=== PATIENT | female | born 1965 | race Caucasian/White ===

== ENCOUNTER → 2020-02-26 15:33 | Outpatient (CLI) | payer BC, SELFPAY ==
--- NOTE | ~2020-02-26 | MM_ITS ---
EXAMINATION: MM screening [facility] BI w rosalio HISTORY: Screening mammogram, patient due for 12 month follow-up of probably benign left breast mass. TECHNIQUE: Craniocaudal and mediolateral oblique 3-D tomosynthesis images were obtained and synthetic 2-D images were generated. CAD analysis was submitted and interpreted. COMPARISON: 01/19/2019, 06/21/2018, 12/08/2017, 11/21/1917, 11/17/2016, 10/22/2016 BREAST PARENCHYMAL COMPOSITION: There are scattered areas of fibroglandular density. FINDINGS: A left breast mass with biopsy marker is stable for greater than two years, consistent with a benign finding. No suspicious mass, calcification, or architectural distortion is identified. Ther e has been no suspicious interval change. IMPRESSION: 1. No mammographic evidence of malignancy. 2. Recommend routine screening mammography in one year. BI-RADS Category 2: Benign finding(s). Reviewed, dictated and finalized at location A.
--- NOTE | ~2020-02-26 | XR_ITS ---
EXAMINATION: XR chest 2V 02/26/2020 16:18 INDICATION: Dyspnea with exertion PROCEDURE: 2 view chest COMPARISON: 04/06/2006 FINDINGS: The lungs are clear. The cardiomediastinal silhouette is within normal limits. There are no pleural effusions. There is no pneumothorax suspected. There is a laparoscopic adjustable gastri c band in the upper abdomen. IMPRESSION: 1: NO ACUTE CARDIOPULMONARY DISEASE. Reviewed, dictated and finalized at location A.
== END ==
PROVIDERS: PCP Family Medicine Adolescent Medicine; Visit Provider Family Medicine Adolescent Medicine
DX: Z12.31 Encounter for screening mammogram for malignant neoplasm of breast (principal); R06.09 Other forms of dyspnea
CPT/HCPCS: 71046; 77063; 77067

== ENCOUNTER 2020-05-15 00:20 | Outpatient (CLI) | payer BC, SELFPAY ==
[2020-05-15 18:51] LABS: SARS-CoV-2 RNA PCR Negative
== END 2020-05-15 00:21 | disposition home or self-care (01) ==
LOC: ANHCOVIDDT 00:21
PROVIDERS: PCP Family Medicine Adolescent Medicine; Visit Provider Specialist
DX: Z01.812 Encounter for preprocedural laboratory examination (principal); Z11.59 Encounter for screening for other viral diseases
CPT/HCPCS: 87635; C9803; U0003

== ENCOUNTER 2020-05-17 01:28 | Day surgery (SDC) | payer BC, SELFPAY ==
[2020-05-16 10:04] VITALS: BMI 47.8
[2020-05-17] VITALS (8 sets, daily range): BP systolic 118–139; BP diastolic 64–86; PULSE 66–75; RESP 12–19; TEMP 36.4–36.6; O2SAT 99–100
--- NOTE | 2020-05-17 10:45 | SUR.PREOP ---
1000-pt presents to the [facility] for an LHC. No distress noted. No chest pain at present. AOx4. PIV started with ultrasound help. Labs sent as ordered. Faint bilateral pedal pulses noted. Groin prepped in the usual fashion. Questions answered and verbalized understanding. Consent signed. Will continue to monitor.
[2020-05-17 10:46] LABS: Basophils Absolute Auto 0.1 K/mm3 (0.0-0.1); Basophils Percent Auto 0.7 % (0.2-1.2); Eosinophils Absolute Auto 0.2 K/mm3 (0-0.3); Eosinophils Percent Auto 1.9 % (0-4.4); Hematocrit 39.5 % (37.0-47.0); Immature Granulocyte Absolute 0.03 K/mm3 (0.00-0.031); Immature Granulocyte Percent A 0.3 % (0-0.5); Lymphocytes Absolute Auto 2.77 K/mm3 (0.9-3.2); Lymphocytes Percent Auto 28.7 % (18.3-44.2); Mean Corpuscular HGB Conc 32.9 g/dl (32-36); Mean Corpuscular Hemoglobin 29.2 pg (26-34); Mean Corpuscular Volume 88.8 fl (80-100); Mean Platelet Volume 10.1 fl (7.4-10.4); Monocytes Absolute Auto 0.7 K/mm3 (0.1-0.6); Monocytes Percent Auto 6.7 % (2.6-8.5); Neutrophils Percent Auto 61.7 % (45.5-73.1); Platelet Count Result 281 k/mm3 (150-375); Red Blood Count 4.45 M/mm3 (4.2-5.4); Red Cell Distribution Width 12.9 % (11.5-14.5); White Blood Count 9.7 K/mm3 (4.5-10.0)
[2020-05-17 10:53] LABS: INR 1.1; Prothrombin Time 14.6 Seconds (11.1-14.7)
[2020-05-17 10:56] LABS: Anion Gap 9 mmol/L (8-16); Blood Urea Nitrogen 13 mg/dL (7-17); Calcium 9.2 mg/dL (8.4-10.2); Carbon Dioxide 28 mmol/L (22-30); Chloride 101 mmol/L (98-107); Estimated CRCL calculation 113 ml/min; Estimated Glomerular Filt Rate > 60; Glucose 148 mg/dL (65-105); Potassium 3.4 mmol/L (3.4-5.0); Sodium 138 mmol/L (137-145)
--- NOTE | 2020-05-17 11:25 | WPDMODSED ---
Moderate Sedation Note-Pt Data Patient Data Diagnosis: exertional dyspnea abnormal nuclear stress test morbid obesity Present Complaint: this is 54-year-old lady who is morbidly obese and is complaining of exertional dyspnea as well as some chest discomfort. She has no prior documented history of coronary disease. A nuclear stress test is abnormal prompting the recommendation for an angiogram. Procedure to be performed/Plan: Left heart catheterization Allergies Allergy/AdvReac Type Severity Reaction Status Date / Time Penicillins Allergy Unknown RASH Unverified 01/04/19 11:31 Home Medications Medication Instructions Recorded Confirmed Type buspirone 10 mg tablet 10 mg PO BID 05/07/20 05/16/20 History cetirizine 10 mg tablet 10 mg PO DAILY 05/07/20 05/16/20 History duloxetine 60 mg capsule,delayed 60 mg PO DAILY 05/07/20 05/16/20 History release escitalopram oxalate 20 mg tablet 20 mg PO DAILY 05/07/20 05/16/20 History fluticasone propionate 50 1 spray INTRANASAL BID #15.8 ml 05/07/20 05/16/20 Rx mcg/actuation nasal spray,suspension furosemide 40 mg tablet 40 mg PO QAM 05/07/20 05/16/20 History glimepiride 1 mg tablet 2 mg PO BID 05/07/20 05/16/20 History hydrocodone 7.5 mg-acetaminophen 15 ml PO Q6H PRN 05/07/20 05/16/20 History 325 mg/15 mL oral solution insulin glargine 100 unit/mL (3 40 unit SUBCUT DAILY 05/07/20 05/16/20 History mL) subcutaneous pen losartan 100 1 tablet PO DAILY 05/07/20 05/16/20 History mg-hydrochlorothiazide 25 mg tablet lovastatin 40 mg tablet 40 mg PO DAILY 05/07/20 05/16/20 History meclizine 25 mg tablet 25 mg PO BID 05/07/20 History meloxicam 15 mg tablet 15 mg PO DAILY 05/07/20 History metformin 500 mg tablet 1,000 mg PO DAILY 05/07/20 05/16/20 History potassium chloride 20 mEq oral 20 meq PO DAILY 05/07/20 05/16/20 History packet ropinirole 1 mg tablet 1 mg PO DAILY tablet 05/07/20 05/16/20 History meclizine 15 mg PO DAILY 05/16/20 05/16/20 History meloxicam 15 mg PO DAILY 05/16/20 05/16/20 History Current Medications: Active Medications Sodium Chloride (Normal Saline Iv) 500 mls @ 100 mls/hr IV CONT .Q5H [facility] Sedation/Anesthesia: No previous sedation/anesthesia problems (including family history). [facility] Social History Social History (Updated 05/07/20 @ 15:11 by Ayde Horowitz MA) Smoking status: Former smoker Alcohol intake: never Substance use: never Mod Sed Physical Exam Physical Exam Pre Procedural Exam: Normal: Neck, Throat, Airway, Lungs, Heart Rate, Heart Rhythm, Neuro Exam and Extremities and Variation: Appearance ( morbidly obese white female no apparent distress) and Heart Size ( PMI cannot be palpated) Hours since solid foods: 12 Hours since liquid intake: 12 Internal Medicine - PN: Obj Da Vital Signs Vital Signs: Vital Signs - 24 hr 05/17/20 10:23 Temperature 36.6 C Pulse Rate 75 Respiratory Rate 14 Blood Pressure 139/86 Pulse Oximetry 100 Meds/Results Medications: Active Medications Generic Name Dose Route Start Last Admin Trade Name Freq PRN Reason Stop Dose Admin Sodium Chloride 500 mls @ 100 mls/hr 05/17/20 06:00 Normal Saline Iv IV CONT .Q5H [facility] Labs CBC & Chem 7: 05/17/20 10:19 05/17/20 10:19 Labs: Laboratory Results - last 24 hr 05/17/20 05/17/20 05/17/20 10:19 10:19 10:19 WBC 9.7 RBC 4.45 Hgb 13.0 Hct 39.5 MCV 88.8 MCH 29.2 MCHC 32.9 RDW 12.9 Plt Count 281 MPV 10.1 Immature Gran % (Auto) 0.3 Neut % (Auto) 61.7 Lymph % (Auto) 28.7 Brantley % (Auto) 6.7 Eos % (Auto) 1.9 Baso % (Auto) 0.7 Lymph # (Auto) 2.77 Brantley # (Auto) 0.7 H Eos # (Auto) 0.2 Baso # (Auto) 0.1 Abs Immat Gran (auto) 0.03 Absolute Neuts (auto) 6.0 Absolute Nucleated RBC 0.0 Nucleated RBC % 0.0 PT 14.6 INR 1.1 Sodium 138 Potassium 3.4 Chloride 101 Carbon Dioxide 28 Anion Gap 9 BU
--- NOTE | 2020-05-17 12:07 | P.PCNCC_ITS ---
Cardiac Cath Procedure Note Date of procedure:: 05/17/20 Performing physician:: Radu Howell MD Indication:: exertional dyspnea abnormal stress test morbid obesity Brief clinical history:: this obese 54-year-old lady who has been reporting symptoms of CHOUDHURY. A nuclear stress test was abnormal prompting the recommendation to perform an angiogram Procedure Procedure performed:: left heart catheterization with left ventriculography and coronary angiography Angio-Seal to right femoral artery Sedation/Medication given:: fentanyl 50 mg Versed 2 mg case start time 11:48 a.m. case end time 12:02 p.m. sedation provided by Trudi Winkler RN, trained observer Access site:: right femoral artery Estimated blood loss:: 10-15 cc Procedure note:: patient was brought to the cardiac catheterization lab in the postabsorptive state the right femoral triangle was prepared in the usual fashion. Anesthesia was provided with 1% lidocaine infiltrated locally. Using the modified Seldinger technique the femoral artery was punctured and a 5 Nepalese vascular sheath was placed. After this left heart catheterization was carried out. A 5 Nepalese pigtail catheter was used to document left-sided hematoma central injected LV g in the YOON projection. After this pigtail catheter was withdrawn in left coronary artery was engaged and injected using a standard 5 Nepalese FL4 catheter. The right coronary artery was engaged and injected using a standard JR4 catheter. After this the case was terminated angiogram was done of the femoral artery through the sheath after which a 6 Nepalese Angio-Seal device was deployed at the puncture site with a good hemostatic result. 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 Findings:: Hemodynamics: Central aortic pressure is 126/64 left ventricle 128/2 end-diastolic pressure 16. There is no significant gradient on pullback across the aortic valve. Left ventricle: The LV is normal in size all segments contract appropriately there were no regional wall motion abnormalities. Ejection fraction is visually estimated to be 60%. Left main coronary artery is widely patent the left anterior descending is a short artery ending before the apex. There is a diagonal branch which extends further down toward the apex of the LV. Despite the LAD being short is angiographically normal. Circumflex is a moderate caliber artery extending around the lateral wall in providing the marginal branches the circumflex is smooth and angiographically normal. Right coronary artery is large in caliber dominant to posterior circulation because of the short LAD the RPDA is expected is quite long extending down to around the apex. The right coronary is angiographically unremarkable Conclusion:: 1. right coronary dominant circulation with no evidence of coronary disease 2. normal left ventricular systolic function with no regional wall motion abnormalities 3. Angio-Seal to right femoral artery 4. false positive nuclear stress test caused by morbid obesity Radu Howell MD [facility]
--- NOTE | 2020-05-17 16:37 | SUR.PHASEII ---
1530-pt given D/c orders and instructions. Questions answered and verbalized understanding. AOx4. PIV removed intact. Pt taken via wheelchair to waiting vehicle. No distress noted or verbalized at time of departure.
== END 2020-05-17 15:30 | disposition home or self-care (01) ==
PROVIDERS: PCP Family Medicine Adolescent Medicine; Visit Provider Specialist
PROC: 4A023N7 Measurement of Cardiac Sampling and Pressure, Left Heart, Percutaneous Approach (ICD-10-PCS; CPT 93452; principal; 2020-05-17 11:30)
DX: R94.39 Abnormal result of other cardiovascular function study (principal); R06.09 Other forms of dyspnea; R07.89 Other chest pain; E66.01 Morbid (severe) obesity due to excess calories; Z68.42 Body mass index [BMI] 45.0-49.9, adult; E11.9 Type 2 diabetes mellitus without complications; I10 Essential (primary) hypertension; E78.5 Hyperlipidemia, unspecified; D64.9 Anemia, unspecified; F41.8 Other specified anxiety disorders; G47.30 Sleep apnea, unspecified; Z79.4 Long term (current) use of insulin
CPT/HCPCS: 36415; 80048; 85025; 85610; 93458; C1760; C1887; C1894; G0269; J1644; J2250; J3010; J7040

== ENCOUNTER 2020-05-23 13:01 | Outpatient (CLI) | payer BC, SELFPAY | END 2020-05-23 13:02 | disposition home or self-care (01) | LOC: ANHAUDIO 13:02 | PROVIDERS: PCP Family Medicine Adolescent Medicine; Visit Provider Otolaryngology | DX: R42 Dizziness and giddiness (principal); H69.80 Other specified disorders of Eustachian tube, unspecified ear; H90.11 Conductive hearing loss, unilateral, right ear, with unrestricted hearing on the contralateral side | CPT/HCPCS: 92557; 92567 ==

== ENCOUNTER 2020-05-29 12:30 | Outpatient (RCR) | payer BC, SELFPAY ==
--- NOTE | 2020-05-23 14:17 | PTOPEVAL ---
INITIAL PHYSICAL THERAPY EVALUATION and PLAN OF CARE Thank you for referring Emma Melgoza to [facility].? Emma is scheduled to be seen for physical therapy? 1x/week for 6 weeks. Please review, sign, date and return this plan of care NATASHA. I agree with and certify that the following plan of care is medically necessary. Referring Physician Date Admitting Provider: Attending Provider: Shaggy Hendricks MD Referring Provider: *PT Outpatient Evaluation Start: 05/23/20 13:18 Freq: Status: Active Protocol: Document 05/23/20 13:10 RIVERA (Rec: 05/23/20 14:17 RIVERA [id number]) Therapy Assessment Status Assessment Status Assessment Status Evaluation Outpatient Past Medical History Past Medical History Source of Past Medical History Recalled from Previous Visit, Confirmed with Patient/Family Neurological History Hx Migraine Yes Cardiovascular History Hx Angina Yes Hx Cardiac Catheterization Yes: 05/17/2020 Hx Chest Pain Yes Hx Hypercholesterolemia Yes Hx Hypertension Yes Respiratory History Hx Sleep Apnea Yes: uses bipap machine Gastrointestinal History Hx Cholecystectomy Yes Hx Gastroesophageal Reflux Disease Yes Hx Irritable Bowel Yes Genitourinary History Hx Genitourinary Disorders No Significant History Musculoskeletal History Hx Arthritis Yes Hx Fibromyalgia Yes Hematological History Hx Hematological Disorders No Significant History Endocrine History Hx Diabetes Yes HEENT History Hx Cataracts Yes: 2014 surgery Hx Tonsillectomy Yes Hx Eye Surgery Yes Integumentary History Hx Cellulitis Yes Hx Other Skin Disorders Yes Reproductive History Hx Fibroids Yes Hx Hysterectomy Yes Psychosocial History Hx Anxiety Yes Hx Depression Yes Pain History Has Past Pain Affected Your Daily Life Yes History of Long-Term Prescription Pain Yes Medication Use (Opiates) Anesthesia History Hx Anesthesia Reactions No Significant History Other History Hx Cancer Yes: skin Evaluation Information Problem Diagnosis BPPV Onset 6-7 years Subjective Information gets dizziness turning around Query Text:As Reported By Patient/ in the shower, moving head Family quickly, nothing with rolling over in bed, will get some dizziness at train crossing, big [employer] theatre - needs to
--- NOTE | 2020-06-10 16:38 | PCPTNOTE ---
PHYSICAL THERAPY DISCHARGE SUMMARY Admitting Provider: Attending Provider: Shaggy Hendricks MD Patient:Emma Melgoza Date of :1965 Emma called to cancel the remaining PT visits due to insurance reasons. Emma?s initial visit was on 05/23/2020 13:00 and she had a total of 1 follow up visit. The goals have been partially met. I did follow up with a phone call and left message in regards to possibly following up via phone to upgrade her VOR exercises. Thank you for referring Emma to [facility]. Please review, sign, date and return this discharge summary NATASHA. I have been updated about Emma's current status and I agree with discharge from the above service at this time. Referring Physician Date
== END 2020-07-01 14:57 | disposition home or self-care (01) ==
LOC: ANHHIPT 12:30
PROVIDERS: PCP Family Medicine Adolescent Medicine; Visit Provider Otolaryngology
DX: H81.10 Benign paroxysmal vertigo, unspecified ear (principal)
CPT/HCPCS: 97110; 97162

== ENCOUNTER 2020-08-08 14:05 | Outpatient (CLI) | payer BC, SELFPAY ==
--- NOTE | 2020-08-08 16:45 | WPDPFTINT ---
PFT Interpretation This is a pulmonary function test with pre and post-bronchodilator spirometry, plethysmography and diffusing capacity. The test was performed and results interpreted in accordance with the 2019 and 2005 ATS/ERS Task Force guidelines respectively using the Micah/Polliam reference equations. Of note the patient was very short of breath during the testing and was unable to keep full exhalation on the spirometry despite good effort and good coating. Findings: Spirometry: The contour the inspiratory flow tracing are normal and the expiratory flow tracing is incomplete. The pre bronchodilator FVC is 3.42 L, 97% predicted. The pre bronchodilator FEV1 is 2.68 L, 102% predicted. The FEV1: FVC ratio is 78%. The post bronchodilator FVC is 3.28 L, representing a 4% decrease. The post bronchodilator FEV1 is 2.28 L, representing a 15% decrease. Plethysmography: The total lung capacity is 5.05 L, 91% predicted. The functional residual capacity is 2.13 L, 107% predicted. The residual volume is 1.63 L, 80% predicted. Diffusing capacity: The absolute diffusion capacity is 19.3, 62% predicted. The diffusing capacity corrected for alveolar volume is 4.96, 128% predicted. Impression: The spirometry is normal without evidence of an obstructive abnormality. There is no significant improvement after inhaling a single dose of albuterol. The lung volumes are normal. The absolute diffusing capacity is mildly decreased and increased when corrected for alveolar volume. There are no prior studies for comparison
== END 2020-08-08 14:06 | disposition home or self-care (01) ==
LOC: ANHPFT 14:06
PROVIDERS: PCP Family Medicine Adolescent Medicine; Visit Provider Family Medicine Adolescent Medicine
DX: R06.02 Shortness of breath (principal)
CPT/HCPCS: 94060; 94726; 94729

== ENCOUNTER → 2022-04-07 13:56 | Outpatient (CLI) | payer BC, SELFPAY ==
--- NOTE | ~2022-04-07 | MM_ITS ---
EXAMINATION: MM screening [facility] BI w rosalio HISTORY: Screening mammogram, family history of breast cancer in her sister. TECHNIQUE: Craniocaudal and mediolateral oblique 3-D tomosynthesis images were obtained and synthetic 2-D images were generated. CAD analysis was submitted and interpreted. COMPARISON: 02/26/2020, 01/19/2019 BREAST PARENCHYMAL COMPOSITION: There are scattered areas of fibroglandular density. FINDINGS: No suspicious mass, calcification, or architectural distortion are identified in either issac ast to suggest malignancy. There has been no suspicious interval change. IMPRESSION: 1. No mammographic evidence of malignancy. 2. Recommend routine screening mammography in one year. BI-RADS Category 1: Negative Reviewed, dictated and finalized at location A.
== END ==
PROVIDERS: PCP Family Medicine Adolescent Medicine; Visit Provider Family Medicine Adolescent Medicine
DX: Z12.31 Encounter for screening mammogram for malignant neoplasm of breast (principal)
CPT/HCPCS: 77063; 77067

== ENCOUNTER 2023-03-29 12:33 | Outpatient (CLI) | payer MEDICARE, BC, SELFPAY ==
--- NOTE | 2023-03-29 14:22 | ECHO_ITS ---
Patient Info Name: Emma Melgoza Age: 57 years : 1965 Gender: Female Ht: 67 in Wt: 290 lbs BSA: 2.56 m2 HR: 81 bpm BP: 171 / 90 mmHg Technical Quality: Poor Exam Date: 03/29/2023 2:24 PM Exam Location: [facility] Patient Status: Outpatient Admit Date: 03/29/2023 Staff Ordering Physician: Valery Diez MD [employer] Analyst: Brinda Cote RDCS Attending Provider: Valery Diez MD Referring Physician: Chary FLORES; Exam Type: CA echo dop color flow w con Study Info Indications - DYSPNEA Complete two-dimensional, color flow and Doppler transthoracic echocardiogram is performed with contrast to opacify the left ventricle and to improve the deliniation of the left ventricle endocardial borders. Contrast/Agitated Saline Contrast/Ag. Saline: Definity Amount: 2.00 ml Administered By: Brinda Cote [facility] Existing IV Access: Yes Site Condition: IV removed Reason for Poor Study: patient body habitus Summary 1. Technically suboptimal study due to poor sonographic images. 2. Definity contrast administered improved wall motion interpretation. 3. Left ventricular chamber dimension is normal. 4. Left ventricular systolic function is normal, estimated at 60-65%. 5. The left ventricular diastolic function is grade I diastolic dysfunction. 6. E/e' 10 is mildly elevated. 7. There is moderate aortic valve sclerosis. 8. There is very mild aortic valve stenosis with a peak velocity of 285.22 cm/s, mean gradient of 18 mmHg, and aortic valve area of 2.03 cm2. 9. There is mild aortic valve regurgitation. 10. The mitral valve has moderately calcified anterior leaflet. 11. No pulmonary hypertension, estimated pulmonary arterial systolic pressure is 21 mmHg. Left Ventricle Definity contrast administered improved wall motion interpretation. E/e' 10 is mildly elevated. Technically suboptimal study due to poor sonographic images. Left ventricular chamber dimension is normal. Left ventricular systolic function is normal, estimated at 60-65%. The left ventricular diastolic function is grade I diastolic dysfunction. Right Ventricle Right ventricular chamber dimension is normal. Right ventricular systolic function is normal. Left Atria Left atrial chamber dimension is normal. Right Atria Right atrial chamber dimension is normal. Aortic Valve The aortic valve is trileaflet. There is moderate aortic valve sclerosis. There is very mild aortic valve stenosis with a peak velocity of 285.22 cm/s, mean gradient of 18 mmHg, and aortic valve area of 2.03 cm2. There is mild aortic valve regurgitation. Pulmonic Valve There is no pulmonic regurgitation. Mitral Valve The mitral valve has moderately calcified anterior leaflet. There is no mitral valve stenosis. There is no mitral valve regurgitation. Tricuspid Valve There is no tricuspid valve regurgitation. No pulmonary hypertension, estimated pulmonary arterial systolic pressure is 21 mmHg. Pericardium/Pleural There is no pericardial effusion. Inferior Vena Cava Normal inferior vena cava with >50% collapse upon inspiration consistent with normal right atrial pressure, 5 mmHg. Aorta The aortic root size at the sinus of Valsalva is normal. Left Ventricular Outflow Tract Name Value Normal LVOT 2D LVOT Di
[2023-03-29] MEDS: PERFLUTREN LIPID MICROSPHERES 1.5 ML VIAL DILUTED TO 10 ML TOTAL VOLUME IV PUSH (15:20)
--- NOTE | 2023-03-29 15:50 | WPDSIXMINUTE ---
Six Minute Walk Procedure Procedure Performed Pulmonary Stress Test (6 min walk) Six Minute Walk Six Minute Walk: This is a 6 minute walk test. The test was performed and interpreted in accordance with the 2014 ERS/ATS task force guidelines. Findings: The patient's resting room air oxygen saturation measured by pulse oximetry was 97% and heart rate was 83 bpm. Patient ambulated for 213 meters and oxygen saturation remained 89 to 96%. Heart rate at the end of the study was 100 bpm. Of note, the patient's saturation decreased to 88% at 40 seconds after test conclusion. The patient did not qualify for supplemental oxygen at rest or with ambulation during the 6 minute walk but did have saturations of 88% at 40 seconds after test conclusion. Consider a formal home O2 assessment. There are no prior studies for comparison.
--- NOTE | 2023-03-29 15:54 | P.PCNPFT_ITS ---
PFT Procedure Performed PFT Procedure Performed Spirometry with Pre/Post Bronchodilator Plethysmography (Lung Vol) Diffusing Cap (DLCO) Flow Vol Loop PFT Interpretation This is a pulmonary function test with pre and post-bronchodilator spirometry, plethysmography and diffusing capacity. The test was performed and results interpreted in accordance with the 2019 and 2005 ATS/ERS Task Force guidelines respectively using the Global Lung Function Initiative-2012 reference equations. Patient demonstrated good effort and cooperation. Reproducibility criteria were met. The quality of the pre bronchodilator spirometry maneuver was Grade A and post bronchodilator spirometry maneuver was Grade A. Findings: Spirometry: The contour the inspiratory and expiratory flow tracing are normal. The pre bronchodilator FVC is 3.63 L, 103% predicted. The pre bronchodilator FEV1 is 2.82 L, 102% predicted. The pre bronchodilator FEV1: FVC ratio 78%. The post bronchodilator FVC is 3.60 L, representing 1% decrease. The post bronchodilator FEV1 is 3.00 L, representing a 6% increase. The post bronchodilator FEV1: FVC ratio was 83%. Plethysmography: The total lung capacity is 5.58 L, 102% predicted. The functional residual capacity is 3.00 L, 96% predicted. The residual volume is 1.95 L, 92% predicted. The Diffusing capacity: The diffusing capacity unadjusted for hemoglobin and carboxyhemoglobin is 23.0, 100% predicted. The diffusing capacity adjusted for alveolar volume is 5.51, 128% predicted. In comparison to previous pulmonary function testing on 08/08/2020 the pre bronchodilator FVC is unchanged from 3.42 L to 3.63 L. The pre bronchodilator FEV1 is unchanged from 2.68 L to 2.82 L.The post bronchodilator FVC is unchanged from 3.28 L to 3.60 L. The post bronchodilator FEV1 is increased from 2.28 L to 3.00 L. the total lung capacity is unchanged from 5.05 L to 5.58 L. The funct ional residual capacity is increased from 2.13 L to 3.00 L. The residual volume is increased from 1.63 L to 1.95 L. The diffusing capacity unadjusted for hemoglobin and carboxyhemoglobin is increased from 19.3 to 23.0. The diffusing capacity adjusted for alveolar volume is unchanged from 4.96 to 5.51. Impression: The spirometry is normal without evidence of an obstructive abnormality. There is no significant improvement after inhaling a single dose of albuterol. The lung volumes are normal. The diffusing capacity is normal. In comparison to previous pulmonary function testing on 08/08/2020 there has been a greater than anticipated time dependent increase in the functional residual capacity, residual volume, and diffusing capacity unadjusted for hemoglobin and carboxyhemoglobin with no significant change in the pre bronchodilator FVC, FEV1, post bronchodilator FVC, total lung capacity or diffusing capacity adjusted for alveolar volume. Of note, there has been a greater than anticipated time dependent decrease in the post bronchodilator FEV1 but on the prior test there was a 15% decrease in the post bronchodilator FEV1. Clinical correlation is recommended.
--- NOTE | 2023-03-30 07:08 | IVDEFINITY ---
Prior to administration of IV Definity the patient was educated on the risks and benefits of the imaging enhancing agent including potential adverse side effects. The patient verbalized understanding. Allergies were verified. No exclusion criteria were identified and at least one of the following inclusion criteria were met: 1) physician request, 2) patient technically difficult to image (per the [place] [employer] Echocardi[employer] guidelines of two or more segments not discernable within the apical view), or 3) questionable left ventricular function. ?
== END 2023-03-29 12:34 | disposition home or self-care (01) ==
PROVIDERS: PCP Family Medicine Adolescent Medicine; Visit Provider Internal Medicine Critical Care Medicine
DX: R06.00 Dyspnea, unspecified (principal); I35.8 Other nonrheumatic aortic valve disorders; I35.0 Nonrheumatic aortic (valve) stenosis; I35.1 Nonrheumatic aortic (valve) insufficiency; R93.1 Abnormal findings on diagnostic imaging of heart and coronary circulation
CPT/HCPCS: 94060; 94618; 94726; 94729; C8929

== ENCOUNTER 2023-05-04 09:03 | Outpatient (CLI) | payer MEDICARE, SELFPAY ==
--- NOTE | 2023-05-23 13:09 | WPDSLEEPSTUD ---
Sleep Study Date of Study: 05/04/23 Ordering Provider: Valery Diez MD Interpreting Physician: Valery Diez MD Sleep Study Type: BiPAP Titration Height: 1.7 m Weight: 131.542 kg Body Mass Index: 45.4 Neck Circumference (inches): 18.5 [place]: 15 Reason for Sleep Study needs BiPAP re-titration, last sleep study was 2013, has a new machine replaced during the pandemic, but she is too sleepy even with good compliance Sleep History Emma Melgoza is a 57-year-old woman with long history of obstructive sleep apnea, diagnosed in 2013. that was her last study. She received a new machine during the pandemic due to the national recall but even with good compliance, she still has excessive daytime sleepiness. She has difficulty concentrating. She never awakens from sleep short of breath. She rarely wakes at night with heartburn, belching or coughing.??She rarely snores, rarely snores loudly enough that others complain. She rarely has trouble sleeping when she has a cold. She rarely wakes up gasping for breath during the night. She rarely has breathing problems at night. She occasionally sweats excessively at night. She rarely notices her heart pounding or beating irregularly during the night. She occasionally falls asleep during the day. She occasionally and sometimes frequently falls asleep involuntarily, occasionally and sometimes frequently falls asleep while driving. She rarely experiences loss of muscle tone with strong emotion. She never feels paralyzed on waking or falling asleep. She rarely experiences vivid dreams upon waking or falling asleep. She never feels afraid of going to sleep however she says that in general she does not want to go to sleep. She occasionally has nightmares. She occasionally recalls her dreams. She occasionally has thoughts racing through her mind. She occasionally feels sad or depressed. She occasionally feels anxiety. She rarely sometimes occasionally notices parts of her body jerk. She occasionally kicks during the night. She has a diagnosis of restless legs syndrome, frequently feels crawling or aching feelings in her legs. In addition, she has diabetes mellitus and fibromyalgia contributing to her aching feelings in her legs. She frequently feels leg pain at night. She never has morning jaw pain, and occasionally grinds her teeth at night. She constantly feels bothered by pain during the day which is due to her fibromyalgia and diabetes, rarely awakened by pain during the night. She frequently wakes up feeling stiff in the morning, frequently wakes feeling sore or achy in the morning. She frequently awakens with pain in her neck, spine, or joints. she has concentration difficulties, memory problems, fatigue and headaches. Normal bedtime is 2:00 a.m., falling asleep very quickly once she puts her BiPAP on. She does not wake up during the night, in general. On occasion, she wakes to look at her phone, get a drink of water or go to the bathroom. Her normal wake up time is 12 noon. She keeps the same schedule on weekends. She averages 12 hours of sleep at night. She takes naps, and sometimes these are refreshing. Habits:??Tobacco: never Caffeine:3-5 caffeinated beverages a day. Alcohol:occasional Recreational substances: edible marijuana, once in a while. [facility] Past Medical History Medical History (Updated 05/23/23 @ 17:19 by Valery Diez MD) BPPV (benign paroxysmal positional vertigo) Essential (primary) hypertension ETD (eustachian tube dysfunction) Fibromyalgia Nasal congestion Obstructive sleep apnea (adult) (pediatric) PND (post-nasal drip) Restless legs syndrome (RLS) Rhinitis Rhinorrhea Type 2 diabetes mellitus with peripheral neuropathy Vertigo Surgical History Surgical History History of adjustable gastric banding History of total abdominal hysterectomy (~2000) Hx of section Hx of cholecystectomy
[2023-05-23 17:21] VITALS: BMI 45.4
== END 2023-05-05 06:37 | disposition home or self-care (01) ==
LOC: ANHCSM 09:03
PROVIDERS: PCP Family Medicine Adolescent Medicine; Visit Provider Internal Medicine Critical Care Medicine
DX: G25.81 Restless legs syndrome (principal); G47.33 Obstructive sleep apnea (adult) (pediatric)
CPT/HCPCS: 95811

== ENCOUNTER 2023-10-22 13:49 | Outpatient (CLI) | payer MEDICARE, SELFPAY ==
--- NOTE | ~2023-10-22 | MM_ITS ---
EXAMINATION: MM screening [facility] BI w rosalio HISTORY: Screening TECHNIQUE: Craniocaudal and mediolateral oblique 3-D tomosynthesis images were obtained and synthetic 2-D images were generated. CAD analysis was submitted and interpreted. COMPARISON: 04/07/2022 BREAST PARENCHYMAL COMPOSITION: Not dense: There are scattered areas of fibroglandular density. FINDINGS: There is no evidence of suspicious mass, calcification, or architectural distortion to sugg est malignancy in either breast. There has been no suspicious interval change. IMPRESSION: 1. No mammographic evidence of malignancy. 2. Recommend routine screening mammography in one year. BI-RADS Category 1: Negative Reviewed, dictated and finalized at location B.
== END 2023-10-22 13:50 ==
LOC: MICIMG 13:50
PROVIDERS: PCP Family Medicine Adolescent Medicine; Visit Provider Obstetrics & Gynecology
DX: Z12.31 Encounter for screening mammogram for malignant neoplasm of breast (principal)
CPT/HCPCS: 77063; 77067

== ENCOUNTER 2024-08-09 15:34 | Outpatient (CLI) | payer MEDICARE, SELFPAY ==
--- OUTSIDE RECORDS SUMMARY | 2024-08-09 15:58 | XMS_ITS | Clinical Summary ---
Author Organization [facility] Address [address] [address] Phone Care Team Providers Care Rock Wool Insulator Name Role Phone Eric Duncan MD Primary Care Provider + Allergies Active Allergy Reactions Criticality Noted Date Comments Penicillins Unknown 04/08/2022 Medications No known medications Family History Medical History Relation Name Comments Cancer Brother colon Cancer Father Cancer Niece Breast Cancer Sister 1 Breast Cancer Sister 2 lung Relation Name Status Comments Brother Father Niece Sister 1 Sister 2 Social History Tobacco Use Types Packs/Day Years Used Date Smoking Tobacco: Never Smokeless Tobacco: Never Alcohol Use Standard Drinks/Week Comments Yes 0 (1 standard drink = 0.6 oz pur e alcohol) occassional Comments Unknown Sex and Gender Information Value Date Recorded Sex Assigned at Not on file Legal Sex Female 7:33 PM CDT Gender Identity Not on file Sexual Orientation Not on file Last Filed Vital Signs Vital Sign Reading Time Taken Comments Blood Pressure 132/93 04/20/2022 3:14 PM CDT Pulse 74 04/20/2022 3:14 PM CDT Temperature - - Respiratory Rate 14 04/20/2022 3:14 PM CDT Oxygen Saturation 100% 04/20/2022 3:14 PM CDT Inhaled Oxygen Concentration - - Weight - - Height - - Body Mass Index - - Plan of Treatment Health Maintenance Due Date Last Done Comments Hepatitis C Virus (HCV) Screening 1965 TdaP Immunization 1965 Cologuard 12/10/2013 Immunochemical Fecal Occult Blood 12/10/2013 Mammogram 12/10/2013 Pneumococcal Immunization (5 0+ years) (1 of 1 - PCV) 12/10/2013 Influenza Immunization (#1) 2024 SARS-COV-2 Immunization (1 - season) 2024 Colonoscopy 04/20/2027 04/20/2022, 01/04/2019, 03/26/2014 Colorectal Cancer Screening 04/20/2027 Respiratory Syncytial Virus (RSV) Immunization (Adult) (1 - 1-dose 75+ series) 12/10/2038 04/20/2022, 01/04/2019, 03/26/2014 Zoster Immunization Completed 12/27/2017, 10/05/2017 Hepatitis B Immunization Aged Out No longer eligible based on patient's age to complete this topic Meningococcal Immunization (ACWY) Aged Out No longer eligible b ased on patient's age to complete this topic Pneumococcal Immunization Combined Aged Out No longer eligible b ased on patient's age to complete this topic Rotavirus Immunization Aged Out No lo nger eligible based on patient's age to complete this topic Procedures Procedure Name Priority Date/Time Associated Diagnosis Comments COLONOSCOPY Routine 01/04/2019 from Last 3 Months or Most Recently Relevant to Health Maintenance Results * COLONOSCOPY (01/04/2019) Paulino Calvillo DO PROCEDURE/MINOR SURGICAL ORDERA BLES Final Result from Last 3 Months or Most Recently Relevant to Health Maintenance Insurance [facility] Care Teams Rock Wool Insulator Relationship Specialty Start Date End Date Eric Duncan MD [address] [place] [address] PCP - General Family Medicine 08/18/18
--- OUTSIDE RECORDS SUMMARY | 2024-08-09 15:58 | XMS_ITS | Clinical Summary ---
Author Organization [facility] Address [address] [place] [id number] Care Team Providers Care Team Assembler Name Role Phone Unavailable Primary Care Provider Unavailabl e Social History Tobacco Use Types Packs/Day Years Used Date Smoking Tobacco: Never Assessed Comments Unknown Sex and Gender Information Value Date Recorded Sex Assigned at Not on file Legal Sex Female 4:28 PM CDT Gender Identity Not on file Sexual Orientation Not on file Last Filed Vital Signs Vital Sign Reading Time Taken Comments Blood Pressure 120/80 11/05/2015 2:39 PM CDT Pulse 76 11/05/2015 2:39 PM CDT Temperature - - Respiratory Rate - - Oxygen Saturation - - Inhaled Oxygen Concentration - - Weight 144.7 kg (319 lb) 11/05/2015 2:39 PM CDT Height 170.2 cm (5' 7 ) 11/05/2015 2:39 PM CDT Body Mass Index 49.96 11/05/2015 2:39 PM CDT Plan of Treatment Health Maintenance Due Date Last Done Comments Cervical Cancer Screening Pa p Smear (Age 30 to 64) Every 3 Years 1965 Colorectal Cancer Screening Colonoscopy (10 Years) 1965 Annual Physical 12/10/1966 Hepatitis C 12/10/1981 DTaP, Tdap and Td Vaccines ( 1 - Tdap) 12/10/1982 Cervical Cancer Screening Pa p with HPV Testing (Age 30 to 64) Every 5 Years 12/10/1993 Cervical Cancer Screening with HPV 12/10/1993 Mammogram Screening 2003 Zoster Vaccines (1 of 2) 12/10/2013 COVID-19 Vaccine (2023-2 5 season) 2024 Influenza Adult (#1) 2024 RSV Immunization or 60+ Years (1 - 1-dose 75+ series) 12/10/2038 Meningococcal B Vaccine Aged Out No l onger eligible based on patient's age to complete this topic Meningococcal Vaccine Aged Out No russ hector eligible based on patient's age to complete this topic Pneumococcal Vaccine: Pediat rics (0 to 5 Years) and At-Risk Patients (6 to 64 Years) Aged Out No longer eligible b ased on patient's age to complete this topic RSV Immunizations Under 20 Months Aged Out No longer eligible based on patient's age to complete this topic
--- OUTSIDE RECORDS SUMMARY | 2024-08-09 15:58 | XMS_ITS | Referral Summary ---
Author Organization [facility] [facility] [address] Address [address] [place] [address] Care Team Providers Care Facility Operations Manager Name Role Phone Eric Duncan MD Primary Care Prov ider Allergies Active Allergy Reactions Criticality Noted Date Comments Penicillins Unknown 05/01/[address] (CYMBALTA) 60 mg capsule Take 60 mg by mouth daily 0 Active HYDROcodone-ac etaminophen (NORCO) 5-325 mg per tablet TAKE 1 TO 2 TABLETS BY MOUTH AT BEDTIME NEEDED FOR PAIN 0 Active Basaglar KwikPen U-100 Insulin 100 unit/mL (3 mL) insulin pen INJECT 40 UNITS SUBCUTANEOUSLY ONCE DAILY AT BEDTIME 0 Active glimepiride (AMARYL) 1 mg tablet TAKE 2 TABLETS BY MOUTH IN THE MORNING AND 2 IN THE EVENING 0 Active metFORMIN XR (GLUCOPHAGE XR) 500 mg 24 hr tablet Take 1,000 mg by mouth daily 0 Active escitalopram (LEXAPRO) 20 mg tablet 0 Active busPIRone (BUSPAR) 10 mg tablet 0 Active meclizine (ANTIVERT) 25 mg tablet TAKE 1 TABLET BY MOUTH 1 TO 2 TIMES DAILY NEEDED FOR VERTIGO 0 Active potassium chloride ER 20 mEq CR tablet Take 20 mEq by mouth daily 0 Active furosemide (LASIX) 40 mg tablet Take 40 mg by mouth daily 0 Active losartan-hydro chlorothiazide (HYZAAR) 100-25 mg per tablet TAKE 1 TABLET BY MOUTH ONCE DAILY FOR BLOOD PRESSURE 0 Active lovastatin (MEVACOR) 40 mg tablet 0 Active rOPINIRole (REQUIP) 1 mg tablet Take 1 mg by mouth nightly at bedtime. 0 Active fluticasone propionate (FLONASE) 50 mcg/actuation nasal spray 0 Active cetirizine (ZyrTEC) 10 mg tablet Take 10 mg by mouth daily Active meloxicam (MOBIC) 15 mg tablet Take 15 mg by mouth daily Active Active Problems Problem Noted Date Diagnosed Date Precordial pain 05/09/2020 Abnormal stress test 05/09/2020 Social History Tobacco Use Types Packs/Day Years Used Date Smoking Tobacco: Never Smokeless Tobacco: Never Alcohol Use Standard Drinks/Week Comments Never 0 (1 standard drink = 0.6 oz pur e alcohol) AUDIT-C Answer Date Recorded Q1: How often do you have a drink containing alc ohol? Never 05/09/2020 Average Number of Drinks Not on file 020 Frequency of Binge Drinking Not on file 11/2019 Personal Safety Answer Date Recorded Getting School Help Needed Not on file 09/18 Comments Unknown Sex and Gender Information Value Date Recorded Sex Assigned at Not on file Legal Sex Female 7:33 PM CORPORATE CONTROLLER Gender Identity Not on file Sexual Orientation Not on file Last Filed Vital Signs Vital Sign Reading Time Taken Comments Blood Pressure 148/80 05/09/2020 11:50 AM CORPORATE CONTROLLER Pulse 94 05/09/2020 11:50 AM CORPORATE CONTROLLER Temperature - - Respiratory Rate - - Oxygen Saturation 96% 05/09/2020 11:50 AM CORPORATE CONTROLLER Inhaled Oxygen Concentration - - Weight 138.3 kg (305 lb) 05/09/2020 11:50 AM CORPORATE CONTROLLER Height 171.5 cm (5' 7.5 ) 05/09/2020 11:50 AM CS T Body Mass Index 47.06 05/09/2020 11:50 AM CORPORATE CONTROLLER Plan of Treatment Not on file Insurance [facility] Care Teams Facility Operations Manager Relationship Specialty Start Date End Date Eric Duncan MD [address] [place] [address] PCP - General Family Medicine 04/23/20
--- OUTSIDE RECORDS SUMMARY | 2024-08-09 15:58 | XMS_ITS | Clinical Summary ---
Author Organization [facility] [place] [address] Address [address] [place] [address] Care Team Providers Care Orientation And Mobility Specialist Name Role Phone Eric Duncan MD Primary [...] Precordial pain 05/09/2020 Abnormal stress test 05/09/2020 Surgical History Surgery Date Site/Laterality Comments SECTION CHOLECYSTECTOMY HERNIA REPAIR LAPAROSCOPIC GASTRIC BANDING HYSTERECTOMY Medical History Medical History Date Comments Hypertension Hyperlipidemia Heart murmur Diabetes mellitus (HCC) Anemia Gallstones Anxiety and depression Sleep apnea Arthritis Family History Medical History Relation Name Comments mesotheleoma Father Stroke Mother Lung cancer Sister 3 Relation Name Status Comments Brother 1 Alive Brother 2 Alive Father (Age 75) Mother (Age 79) Sister 1 Alive Sister 2 Alive Sister 3 (Age 60) Sister 4 Alive Social History Tobacco Use Types Packs/Day Years [...] on file Legal Sex Female 7:33 PM WOMEN NURSE Gender Identity Not on file Sexual Orientation Not on file Obstetrics History Last Filed Vital Signs Vital Sign Reading Time Taken Comments Blood Pressure 148/80 05/09/2020 11:50 AM WOMEN NURSE Pulse 94 05/09/2020 11:50 AM WOMEN NURSE Temperature - - Respiratory Rate - - Oxygen Saturation 96% 05/09/2020 11:50 AM WOMEN NURSE Inhaled Oxygen Concentration - - Weight 138.3 kg (305 lb) 05/09/2020 11:50 AM WOMEN NURSE Height 171.5 cm (5' 7.5 ) 05/09/2020 11:50 AM CS T Body Mass Index 47.06 05/09/2020 11:50 AM WOMEN NURSE Plan of Treatment Not on file Insurance [facility] Care Teams Orientation And Mobility Specialist Relationship Specialty Start Date End Date Eric Duncan MD [address] [place] [address] PCP - General Family Medicine 04/23/20
[2024-08-09 17:01] LABS: Influenza A QL RT-PCR Positive (Negative); Influenza B QL RT-PCR Negative (Negative); RSV RNA, RT-PCR Negative (Negative); SARS-CoV-2 RNA PCR Negative (Negative)
== END 2024-08-09 15:35 | disposition home or self-care (01) ==
PROVIDERS: PCP Nurse Practitioner Family; Visit Provider Nurse Practitioner Family
DX: R50.9 Fever, unspecified (principal)
CPT/HCPCS: 87637

== ENCOUNTER 2024-10-26 15:46 | Outpatient (CLI) | payer MEDICARE, SELFPAY ==
--- NOTE | ~2024-10-26 | MM_ITS ---
EXAMINATION: MM screening [facility] BI w rosalio HISTORY: Screening TECHNIQUE: Craniocaudal and mediolateral oblique 3-D tomosynthesis images were obtained and synthetic 2-D images were generated. CAD analysis was submitted and interpreted. COMPARISON: Comparison to multiple prior studies sequentially, with oldest reviewed study dated 02/2019. BREAST PARENCHYMAL COMPOSITION: Not dense: There are scattered areas of fibroglandular density. FINDINGS: There is no evidence of suspicious mass, calcification, or architectural distortion to sugg est malignancy in either breast. There has been no suspicious interval change. IMPRESSION: 1. No mammographic evidence of malignancy. 2. Recommend routine screening mammography in one year. BI-RADS Category 1: Negative Reviewed, dictated and finalized at location A.
== END 2024-10-26 15:47 | disposition home or self-care (01) ==
LOC: MICIMG 15:47
PROVIDERS: PCP Obstetrics & Gynecology; Visit Provider Obstetrics & Gynecology
DX: Z12.31 Encounter for screening mammogram for malignant neoplasm of breast (principal)
CPT/HCPCS: 77063; 77067

== ENCOUNTER 2025-03-08 02:04 | Emergency (ER) | payer MEDICARE, SELFPAY ==
[2025-03-08 02:19] VITALS: BP 165/75; PULSE 71; RESP 16; TEMP 36.6; O2SAT 98
--- NOTE | 2025-03-08 02:49 | ED.GENADULT ---
HPI - General Adult General Chief complaint: Unspecified Stated complaint: low blood sugar Time Seen by Provider: 03/08/25 02:44 History of Present Illness HPI narrative: This is a 59-year-old female with history of diabetes, hyperlipidemia, depression, restless leg syndrome, RUFINO, hypertension who presents to the ED for hypoglycemia. Patient states that she was alarmed by her continuous glucose monitor her glucose was low. After this, she began to feel lightheaded. She ate a couple struggle cover peanuts and came straight to the ED. Here, patient reports that her symptoms have resolved. Related Data Home Medications ?Medication ?Instructions ?Recorded ?Confirmed ?Last Taken ?Type cholecalciferol (vitamin D3) 25 25 mcg PO DAILY 12/27/23 12/13/24 Unknown History mcg (1,000 unit) capsule vitamin B comp and C no.3 15 mg-10 1 cap PO DAILY 12/27/23 12/13/24 Unknown History mg-50 mg-5 mg-300 mg capsule (B Complex Plus Vitamin C) Allergies Allergy/AdvReac Type Severity Reaction Status Date / Time Penicillins Allergy Unknown RASH Verified 03/08/25 02:28 Dponpkn-[id number]-LrS Reductase AdvReac Intermediate Muscle Pain Verified 03/08/25 02:28 Inhibitor ampicillin AdvReac Unknown Rash Verified 03/08/25 02:28 lisinopril AdvReac Unknown Cough Verified 03/08/25 02:28 Review of Systems Review of Systems: Gen.: Denies fevers or chills Eyes: Denies eye pain or visual change ENT: Denies congestion Respiratory: Denies shortness of breath or cough CV: Denies chest pain or palpitations GI: Denies abdominal pain nausea, emesis or diarrhea denies burning, urgency, frequency or hematuria Musculoskeletal: Denies back pain or muscle pain Neuro: Denies numbness, tingling, weakness or focal weakness Skin: Denies rash Except as documented, all other systems reviewed and negative [facility] Past Medical History Medical History Restless legs syndrome (RLS) Type 2 diabetes mellitus with peripheral neuropathy Nasal congestion PND (post-nasal drip) Rhinitis Rhinorrhea Essential (primary) hypertension Obstructive sleep apnea (adult) (pediatric) Fibromyalgia BPPV (benign paroxysmal positional vertigo) ETD (eustachian tube dysfunction) Vertigo Surgical History Surgical History Hx of hernia repair Hx of section Hx of cholecystectomy History of adjustable gastric banding History of total abdominal hysterectomy (~2000) Family History Family History Father Cancer Mother Hypertension Recurrent strokes Sibling Colon cancer Social History Social History Smoking status: Former smoker Alcohol intake: never Substance use: never Lack of Transportation: No Lack of Food: Never True Current Housing: I Have Housing Concerned About Future Housing: No Difficulty Paying Gas/Electric Bills: No Difficulty Paying for Meds: No Currently Unemployed: No Education: Trade/Vocational Certificate Difficulty w/ Childcare or Family Care: No Exam Narrative: APPEARANCE: No acute distress, nontoxic, resting in bed HEENT: Normocephalic, atraumatic, OMM RESPIRATORY: No respiratory distress CARDIOVASCULAR: Appears well perfused ABDOMINAL: Nondistended MUSCULOSKELETAl: Moves all extremities. No obvious deformities NEURO: Awake and alert. SKIN:: Warm, dry. No rashes lesions or abrasions PSYCHIATRIC: Normal affect/mood, Course Vital Signs Vital signs: Vital Signs Temperature 97.9 F 03/08/25 02:19 Pulse Rate 71 03/08/25 02:19 Respiratory Rate 16 03/08/25 02:19 Blood Pressure 165/75 H 03/08/25 02:19 Pulse Oximetry 98 03/08/25 02:19 Oxygen Delivery Room Air 03/08/25 02:19 Temperature 97.9 F 03/08/25 02:19 Pulse Rate 71 03/08/25 02:19 Respiratory Rate 16 03/08/25 02:19 Blood Pressure 165/75 H 03/08/25 02:19 Pulse Oximetry 98 03/08/25 02:19 Oxygen Delivery Room Air 03/08/25 02:19 Medical Decision Making MDM Narrative Medical decision making narrative: 59-year-old female who presents to the ED for hypoglycemia. on initial evaluation, patient was in no acute distress, afebrile, hemodynamically stable. Point care glucose here was 248 but her continuous glucose monitor was reading in the 50s. She was asymptomatic at this time. Point care glucose was rechecked here with a different machine and showed a glucose of 270. Suspect that she has a malfunctioning continuous glucose monitor. She was advised to take manual glucoses at home until the monitor can be fixed were replaced. She was advised follow-up with her PCP in the next couple days for re-evaluation. Patient was agreeable to this plan. Given strict return precautions. Differential Diagnosis Differential Diagnosis: hypoglycemia, malfunctioning continuous glucose monitor Medical Records Medical records reviewed: Yes I reviewed the external patient's medical records. Vital Signs Vital Signs: Vital Signs Temperature 97.9 F 03/08/25 02:19 Pulse Rate 71 03/08/25 02:19 Respiratory Rate 16 03/08/25 02:19 Blood Pressure 165/75 H 03/08/25 02:19 Pulse Oximetry 98 03/08/25 02:19 Oxygen Delivery Room Air 03/08/25 02:19 Temperature 97.9 F 03/08/25 02:19 Pulse Rate 71 03/08/25 02:19 Respiratory Rate 16 03/08/25 02:19 Blood Pressure 165/75 H 03/08/25 02:19 Pulse Oximetry 98 03/08/25 02:19 Oxygen Delivery Room Air 03/08/25 02:19 Lab Data Lab results reviewed: Yes I reviewed the patient's lab results. Labs: Lab Results 03/08/25 03/08/25 Range/Units 02:15 02:56 POC Capillary Glucose 248 H 270 H (65-105) mg/dl Discharge Plan Discharge Clinical Impression: Chronic hyperglycemia Patient Disposition: Home Condition: Stable Instructions: Antibiotic Form Additional Instructions: Continue to monitor blood sugar. Consider changing out your continuous blood glucose monitor sooner. In the meantime, check a manual glucose is. Follow-up with your PCP or autopsy pathologist in the next few days for re-evaluation. Return to the ED for any new or worsening symptoms. Patient Language: Gambian Prescriptions: No Action cholecalciferol (vitamin D3) 25 mcg (1,000 unit) capsule 25 mcg PO DAILY B Complex Plus Vitamin C 29-84-08-5-300 mg capsule 1 cap PO DAILY Rx Instructions: give with food (meal/snack) cetirizine [All Day Allergy (cetirizine)] 10 mg tablet 10 mg PO DAILY Qty: 90 3RF (DME) pen needle, diabetic 32 gauge x 5/32 needle See Rx Instructions .ROUTE .COMPLEX Qty: 100 2RF Dose Instruction: USE DIRECTED Rx Instructions: USE DIRECTED pioglitazone 45 mg tablet 45 mg PO DAILY Qty: 90 3RF ropinirole 1 mg tablet 1 mg PO QHS Qty: 90 2RF furosemide 40 mg tablet 40 mg PO QAM Qty: 90 2RF ezetimibe 10 mg tablet 10 mg PO DAILY Qty: 90 2RF potassium chloride [Klor-Con M20] 20 mEq tablet,ER particles/crystals 20 meq PO DAILY Qty: 90 2RF (DME) FreeStyle Zechariah 3 Rugby Misc See Rx Instructions .Route Qty: 1 0RF Rx Instructions: As directed (DME) FreeStyle Zechariah 3 Plus Sensor Device See Rx Instructions .Route Qty: 2 11RF Rx Instructions: four times daily, change every 15 days meclizine 25 mg tablet See Rx Instructions .ROUTE .COMPLEX Qty: 100 1RF Dose Instruction: TAKE 1 TABLET BY MOUTH 1 TO 2 TIMES DAILY NEEDED FOR VERTIGO Rx Instructions: TAKE 1 TABLET BY MOUTH 1 TO 2 TIMES DAILY NEEDED FOR VERTIGO meloxicam 15 mg tablet See Rx Instructions .ROUTE .COMPLEX Qty: 90 1RF Dose Instruction: Take 1 tablet by mouth once daily Rx Instructions: Take 1 tablet by mouth once daily losartan-hydrochlorothiazide 100-25 mg tablet See Rx Instructions .ROUTE .COMPLEX Qty: 90 3RF Dose Instruction: Take 1 tablet by mouth once daily Rx Instructions: Take 1 tablet by mouth once daily escitalopram oxalate 20 mg tablet 20 mg PO DAILY Qty: 90 1RF Novolin R FlexPen 100 unit/mL (3 mL) insulin pen See Rx Instructions .ROUTE .COMPLEX Qty: 18 0RF Dose Instruction: INJECT 30 UNITS SUBCUTANEOUSLY TWICE DAILY Rx Instructions: INJECT 30 UNITS SUBCUTANEOUSLY TWICE DAILY Follow-up/Referrals: Pauline Nava APRN [Primary Care Provider, Family Practice]
--- OUTSIDE RECORDS SUMMARY | 2025-03-08 03:06 | XMS_ITS | Clinical Summary ---
Author Organization [facility] Address [address] [address] Phone Care Team Providers Care Customer Retention Representative Name Role Phone Eric Duncan MD Primary [...] (HCV) Screening 1965 TdaP Immunization 1965 Cologuard 12/10/2008 Immunochemical Fecal Occult Blood 12/10/2008 Pneumococcal Immunization (5 0+ years) (1 of 1 - PCV) 12/10/2013 Influenza Immunization (#1) 2025 05/19/2013 SARS-COV-2 Immunization (1 - season) 2025 Colonoscopy 04/20/2027 04/20/2022, 01/04/2019, 03/26/2014 Colorectal Cancer Screening 04/20/2027 Respiratory Syncytial Virus (RSV) Immunization (Adult) (1 - 1-dose 75+ series) 12/10/2038 Zoster Immunization Completed 12/27/2017, 10/05/2017 Hepatitis B Immunization Aged Out No longer eligible based on patient's age to complete this topic Human Papillomavirus (HPV) Immunization Aged Out No longer eligible b ased [...] Most Recently Relevant to Health Maintenance Insurance Care Teams Customer Retention Representative Relationship Specialty Start Date End Date Eric Duncan MD [phone] (work) PCP - General Family Medicine 08/18/18
--- OUTSIDE RECORDS SUMMARY | 2025-03-08 03:07 | XMS_ITS | Clinical Summary ---
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 Gender Identity Not on file Sexual Orientation Not on file Obstetrics History Last Filed Vital Signs Vital Sign Reading Time Taken Comments Blood Pressure 148/80 05/09/2020 11:50 AM AIR QUALITY MANAGER Pulse 94 05/09/2020 11:50 AM AIR QUALITY MANAGER Temperature - - Respiratory Rate - - Oxygen Saturation 96% 05/09/2020 11:50 AM AIR QUALITY MANAGER Inhaled Oxygen Concentration - - Weight 138.3 kg (305 lb) 05/09/2020 11:50 AM AIR QUALITY MANAGER Height 171.5 cm (5' 7.5) 05/09/2020 11:50 AM CS T Body Mass Index 47.06 05/09/2020 11:50 AM AIR QUALITY MANAGER Plan of Treatment Not on file Insurance [facility] Care Teams Glass Beveler Relationship Specialty Start Date End Date Eric Duncan MD PCP - General Family Medicine 04/23/20
== END 2025-03-08 03:15 | disposition home or self-care (01) ==
LOC: ANHED 03:04
PROVIDERS: Emergency Provider Student in an Organized Health Care Education/Training Program; PCP Nurse Practitioner Family
DX: E11.649 Type 2 diabetes mellitus with hypoglycemia without coma (principal); I10 Essential (primary) hypertension; E78.5 Hyperlipidemia, unspecified; G47.33 Obstructive sleep apnea (adult) (pediatric); G25.81 Restless legs syndrome; F32.A Depression, unspecified; Z87.891 Personal history of nicotine dependence
CPT/HCPCS: 82948; 99282